=== PATIENT | female | born 2005 | race Caucasian/White ===

== ENCOUNTER 2023-05-29 12:43 | Emergency (ER) | payer SELFPAY ==
--- NOTE | ~2023-05-29 | XR_ITS ---
XR chest 1V portable DATE: 05/29/2023 14:03 INDICATION: Chest pain, cough TECHNIQUE: Portable AP chest on May 29, 2023 at 1409 hours COMPARISON: None FINDINGS: Normal heart size. No hilar or mediastinal enlargement. No pulmonary infiltrate or consolid ation, pleural effusion or pulmonary vascular congestion or pneumothorax. Included skeletal structure s are unremarkable. IMPRESSION: Negative Reviewed, dictated and finalized at location A. IMPRESSION: Negative
[2023-05-29 12:43] VITALS: BP 123/75; PULSE 98; RESP 18; TEMP 37.9; O2SAT 100
--- NOTE | 2023-05-29 13:09 | ED.GENADULT ---
HPI - General Adult General Chief complaint: Upper Respiratory Infection Stated complaint: fever, body aches, chills Time Seen by Provider: 05/29/23 13:08 History of Present Illness HPI narrative: 17-year-old female complaining of sore throat since yesterday her boyfriend had for 2 days. Complains general muscle aches decreased p.o. intake nausea yesterday denies any abdominal pain back pain. Has had some chest pain. Denies any cough problems voiding or stooling. Last menstrual period was 1 month ago she had a test done then was negative she has had a period in the last few days. Denies any swelling lumps or bumps rash or itching bleeding or bruising dizziness or lightheadedness or any other complaints. Related Data Home Medications Medication Instructions Recorded Confirmed No Home Medications 05/29/23 05/29/23 Allergies Allergy/AdvReac Type Severity Reaction Status Date / Time No Known Allergies Allergy Verified 05/29/23 12:58 Review of Systems Review of Systems: All systems reviewed & are unremarkable except as noted in HPI and below Exam Narrative: White female patient with no apparent distress.? Head normocephalic, atraumatic.? Eyes conjunctiva pink sclera nonicteric.? Extraocular movements are intact.? Ears externally normal.? Oropharynx is clear with moist mucous membranes without exudates.? Neck is supple nontender no lymphadenopathy.? Back is nontender.? Lungs are clear.? Heart is regular rate and rhythm without murmurs gallops or rubs.? Chest wall nontender.? Back is nontender. Abdomen is soft and nontender no hepatosplenomegaly or masses no CVA tenderness no abdominal bruits.? Extremities no cyanosis clubbing or edema.? Skin is warm and dry without rashes or lesions.? Neurological patient is alert and oriented x4.? Motor and sensory grossly intact.? Gait is normal. Course Vital Signs Vital signs: Vital Signs Temperature 37.9 C H 05/29/23 12:43 Pulse Rate 98 05/29/23 12:43 Respiratory Rate 18 05/29/23 12:43 Blood Pressure 123/75 05/29/23 12:43 Pulse Oximetry 100 05/29/23 12:43 Oxygen Delivery Room Air 05/29/23 12:43 Temperature 37.9 C H 05/29/23 12:43 Pulse Rate 98 05/29/23 12:43 Respiratory Rate 18 05/29/23 12:43 Blood Pressure 123/75 05/29/23 12:43 Pulse Oximetry 100 05/29/23 12:43 Oxygen Delivery Room Air 05/29/23 12:43 Medical Decision Making MDM Narrative Medical decision making narrative: Patient was placed in Room # One, with her boyfriend Coags COVID flu RSV strep D-dimer CBC CMP chest x-ray EKG troponin and test were all negative Independent Historian: boyfriend External Source Review: Differential Dx includes but not limited to: flu COVID RSV strep heart disease viral URI Medications were Reviewed: home meds reviewed she is on a pain reliever Independently Interpreted by me: normal sinus rhythm with sinus arrhythmia at a rate [address] T wave abnormalities normal axis impression normal EKG as independently interpreted by me. Meds, treatment, ED course: Social Situation Impacting Patients Care: Shared decision Making: evaluation was discussed with patient all questions were asked and answered patient agreed with the plan. DISCHARGE DIAGNOSIS: viral URI DISPOSITION: Discharged home CONDITION AT DISCHARGE: stable Vital Signs Vital Signs: Vital Signs Temperature 37.9 C H 05/29/23 12:43 Pulse Rate 98 05/29/23 12:43 Respiratory Rate 18 05/29/23 12:43 Blood Pressure 123/75 05/29/23 12:43 Pulse Oximetry 100 05/29/23 12:43 Oxygen Delivery Room Air 05/29/23 12:43 Temperature 37.9 C H 05/29/23 12:43 Pulse Rate 98 05/29/23 12:43 Respiratory Rate 18 05/29/23 12:43 Blood Pressure 123/75 05/29/23 12:43 Pulse Oximetry 100 05/29/23 12:43 Oxygen Delivery Room Air 05/29/23 12:43 Discharge Plan Discharge Clinical Impression: Upper respiratory infection P
[2023-05-29 13:30] LABS: Strep Group A RT-PCR NOT DETECTED (Negative)
[2023-05-29 13:40] LABS: Influenza A QL RT-PCR Negative (Negative); Influenza B QL RT-PCR Negative (Negative); RSV RNA, RT-PCR Negative (Negative); SARS-CoV-2 RNA PCR Negative (Negative)
[2023-05-29 13:40] LABS: Hematocrit 37.5 % (35.0-49.0); Hemoglobin 12.5 g/dL (12.0-15.0); Mean Corpuscular HGB Conc 33.3 g/dL (32-36); Mean Corpuscular Hemoglobin 31.9 pg (27.0-31.0); Mean Corpuscular Volume 95.7 fL (78.0-102.0); Platelet Count Result 231 K/mm3 (150-420); Red Blood Count 3.92 M/mm3 (4.20-5.40); Red Cell Distribution Width 12.5 % (11.6-14.4); White Blood Count 10.1 K/mm3 (4.8-10.8)
--- NOTE | 2023-05-29 13:47 | ECG_ITS ---
Measurements Intervals [place] Rate: 87 P: 17 NV: 145 QRS: 67 QRSD: 90 T: 9 QT: 352 AVG RR: 688 QTc: 396 QTCB: 424 QTCF: 398 Interpretive Statements SINUS RHYTHM WITH SINUS ARRHYTHMIA NORMAL ECG SEE SCANNED COPY FOR SIGNATURE MTDD
[2023-05-29 13:56] LABS: D Dimer 0.27 mg/L (0.19-0.50); Partial Thromboplastin Time 30.2 Sec (23.9-30.70); Prothrombin Time 10.8 Seconds (9.50-12.1); SPREG INTERNAL CONTROL Positive; Serum Qual hCG Negative
[2023-05-29 13:58] LABS: Alanine Aminotransferase 30 U/L (14-59); Albumin Level 3.7 g/dL (3.4-5.0); Alkaline Phosphatase 78 U/L (50-130); Anion Gap 9 mmol/L (4-12); Aspartate Amino Transferase 14 U/L (15-37); Bilirubin,Total 0.4 mg/dL (0.00-1.00); Blood Urea Nitrogen 9 mg/dL (7-18); Calcium 8.9 mg/dL (8.5-10.1); Carbon Dioxide 26 mmol/L (21-32); Chloride 104 mmol/L (98-108); Estimated CRCL calculation 99 ml/min; Estimated Glomerular Filt Rate > 60; Glucose 83 mg/dL (70-99); Osmolality Calculated 285 mOsm/kg (285-295); Potassium 4.2 mmol/L (3.5-5.1); Sodium 139 mmol/L (136-145); Total Protein 7.3 g/dL (6.4-8.2)
[2023-05-29 14:01] LABS: Troponin I < 4.0 ng/L (0.00-60.4)
[2023-05-29 14:32] VITALS: BP 114/70; PULSE 85; RESP 16; TEMP 38.4; O2SAT 100
== END 2023-05-29 14:56 | disposition home or self-care (01) ==
PROVIDERS: Emergency Provider Emergency Medicine
DX: J06.9 Acute upper respiratory infection, unspecified (principal); Z20.822 Contact with and (suspected) exposure to COVID-19
CPT/HCPCS: 36415; 71045; 80053; 84484; 84703; 85027; 85380; 85610; 85730; 87637; 87651; 93005; 99284

== ENCOUNTER 2023-08-28 19:14 | Emergency (ER) | payer MEDICAID, SELFPAY ==
[2023-08-28 19:24] VITALS: BP 121/60; PULSE 143; RESP 20; TEMP 39.1; O2SAT 100
--- NOTE | 2023-08-28 19:37 | ED.URI ---
HPI - URI/Sore Throat General Chief Complaint: Upper Respiratory Infection Stated Complaint: Chest Pain/Body Ache/Dizziness/Vomiting Time Seen by Provider: 08/28/23 19:24 Source: patient, RN notes reviewed and old records reviewed Mode of arrival: wheelchair Limitations: no limitations History of Present Illness HPI Narrative: 17 year old female accompanied by boyfriend presents to express, placed in wheel chair by boyfriend and during registration patient stated she felt she was going to pass out, she is very anxious,; staff went to registration area and patient proceeds to get out of wheelchair and nearly fell/ tripped. Patient was caught and assisted back to wheelchair. She reports that she will punch me in the face and tell her she'll have to go ahead because I can't let her fall,assisted back into wheelchair.. She apologizes to nursing staff later for her behavior.Patient reports that she has had fevers, chills, body aches,nasal congestion and drainage since yesterday and she did vomit one hour prior to arrival., patient states that she has had positive exposure to strep MD elicited complaint: fever, rhinorrhea, nasal congestion and other (chills, body aches) Onset (ago): day(s) Pain scale (0-10): 8 Able to tolerate fluids by mouth: Yes Treatments prior to arrival: acetaminophen Related Data Home Medications Medication Instructions Recorded Confirmed Iud 08/28/23 Allergies Allergy/AdvReac Type Severity Reaction Status Date / Time No Known Allergies Allergy Verified 08/28/23 19:15 Review of Systems Review of Systems: CONSTITUTIONAL: Reports malaise, chills, sweats, or fever. EYES: Denies visual changes, redness, or discharge. ENT: Reports rhinorrhea, congestion, sinus pain, no otalgia and no sore throat. CARDIOVASCULAR: Denies chest pain, palpitations, or edema. RESPIRATORY: Reports no cough.? Denies dyspnea. GASTROINTESTINAL: Denies abdominal pain, denies nausea, vomiting X1,no diarrhea SKIN: Denies rash or itching. MUSCULOSKELETAL:Reports myalgia. NEUROLOGIC: Denies headache. All systems reviewed & are unremarkable except as noted in HPI and below PMFSH Past Medical History Medical History (Updated 08/30/23 @ 14:57 by Zeinab Boggs NP) ADHD (attention deficit hyperactivity disorder) Anxiety and depression Bipolar 1 disorder IUD (intrauterine device) in place Social History Social History (Updated 08/30/23 @ 15:03 by Zeinab Boggs NP) Smoking status: Current every day smoker Alcohol intake: unknown Substance use: unknown Gender identity (if verbalized by the patient): Female Comments At time of signature, agree with nursing past medical, surgical, social and family history. There is no relevant family history pertinent to the presenting complaint Exam Narrative: GENERAL: Well-appearing, well-nourished, and in no acute distress HEAD: Normocephalic EYES: PERRLA, conjunctivae clear ENT: Nares clear, turbinates edematous and erythematous, clear discharge, sinus pain. Mucous membranes moist. TM pearly odom with dull light reflex bilaterally; no tragal tenderness. Oropharynx erythematous without lesions. Tonsils not enlarged and without exudate, no drooling, no hoarseness, no trismus, uvula midline. NECK: Supple. No lymphadenopathy CHEST: Clear to auscultation, breath sounds equal. No wheezing, rhonchi, rales, or stridor. No respiratory distress, speaks in full sentences.SAO2 100% on room air HEART: Regular rate and rhythm. No murmur heard. SKIN: Warm, dry, no rash. NEURO: Alert and oriented x3. PSYCH: Normal mood and affect; acute anxiety when first arrived but has calmed down and cooperative Course Course Emergency Course: Patient is aware of diagnosis, understands and agrees to treatment plan.? Anticipatory guidance given.? Patient agrees to follow-up as directed and is aware of reasons to seek care at the emergency department. Portions of
[2023-08-28 19:57] LABS: EDSTREPNEGPOS1 Presumptive Negative
--- NOTE | 2023-08-28 20:09 | PC.NURSE ---
denied uti sx.
[2023-08-28 20:11] LABS: EDINFLUASCREEN Negative; EDINFLUBSCREEN Negative
[2023-08-28 20:21] LABS: EDSTREPNEGPOS1 Presumptive Negative
--- NOTE | 2023-08-28 20:29 | PC.NURSE ---
temp recheck 100.9 per skin, hr 112, and pulse ox 97%ra. aware if sx persist or worsen to f/u in higher level of care. denied nausea or any other sx at this time.
== END 2023-08-28 20:39 | disposition home or self-care (01) ==
PROVIDERS: Emergency Provider Registered Nurse
DX: B34.9 Viral infection, unspecified (principal); F17.200 Nicotine dependence, unspecified, uncomplicated; Z20.822 Contact with and (suspected) exposure to COVID-19
CPT/HCPCS: 87081; 87426; 87804; 87880; 99213; G0463

== ENCOUNTER 2023-08-30 15:17 | Emergency (ER) | payer MEDICAID, SELFPAY ==
--- NOTE | 2023-08-30 15:23 | ED.GENADULT ---
HPI - General Adult General Chief complaint: Upper Respiratory Infection Stated complaint: Chills/Sore Throat/Vomiting/Cough Time Seen by Provider: 08/30/23 15:25 Source: patient, RN notes reviewed and old records reviewed Mode of arrival: ambulatory Limitations: no limitations History of Present Illness HPI narrative: 17-year-old female presents to the [facility] with complaints of chills, sore throat, vomiting and a cough. Was evaluated 2 days ago and tested negative for flu, COVID, strep. Symptoms now having gradually increasing over the last 3 days. Patient states that whenever she tries take sips of water she does vomit. Has not taking any medications to help her symptoms Treatments prior to arrival: none Related Data Home Medications Medication Instructions Recorded Confirmed Iud 08/28/23 Allergies Allergy/AdvReac Type Severity Reaction Status Date / Time No Known Allergies Allergy Verified 08/28/23 19:15 Review of Systems Review of Systems: All systems reviewed & are unremarkable except as noted in HPI and below Constitutional: Constitutional: Reports as per HPI, Reports body ache(s), Reports fatigue and Reports fever(s) Eyes: Eyes: Reports no additional eye complaints ENT: Reports as per HPI and Reports sore throat Cardiovascular: Cardiovascular: Reports no additional cardiovascular complaints, Denies chest pain and Denies dyspnea Respiratory: Respiratory: Reports no additional respiratory complaints, Denies chest congestion, Denies cough and Denies dyspnea Gastrointestinal: Gastrointestinal: Reports as per HPI, Denies abdominal pain, Reports nausea and Reports vomiting Musculoskeletal: Musculoskeletal: Reports no additional musculoskeletal complaints Integumentary/Breasts: Skin/Breast: Reports system reviewed and no additional complaints, except as docu Neurologic: Reports system reviewed and no additional complaints, except as documented Psychiatric: Psychiatric: Reports no additional psychiatric complaints Allergic/Immunologic: Allergic/Immunologic: Reports no additional allergic/immunologic complaints [facility] Past Medical History Medical History ADHD (attention deficit hyperactivity disorder) Anxiety and depression Bipolar 1 disorder IUD (intrauterine device) in place Social History Social History Smoking status: Current every day smoker Alcohol intake: unknown Substance use: unknown Gender identity (if verbalized by the patient): Female Comments At the time of my signature, I reviewed and agree with the nursing past medical, surgical, social, and family history. There is no relevant family history pertinent to the patient complaint. Exam Const: General: cooperative, no acute distress, well developed, alert, tired appearing, uncomfortable and well nourished Nutritional Appearance: well nourished Orientation/consciousness: patient oriented x3 Limitations: no limitations HENMT: Head: normal to inspection Ears: hearing grossly normal bilaterally, external ears normal, TM's normal bilaterally, EAC's normal, mastoids normal and no periauricular adenopathy Face/Nose/Sinus: Normal external nose present, Normal nares present, Normal nasal mucous membranes and turbinates present, normal facial exam and face symmetric Face and sinus: normal facial exam and face symmetric Throat: posterior oropharynx normal, tonsils normal, uvula midline and no uvular edema Eyes: General: appearance normal, both eyes and all related structures Alignment and Position: alignment normal Periorbital: periorbital findings normal Pupils: Equal, round and reactive pupils present EOM: EOMs intact bilaterally Neck: Neck: normal visual inspection, full ROM, no lymphadenopathy and no meningeal signs Chest: Chest palpation & inspection: normal inspection of the chest Resp: Effort & Inspection: normal re
[2023-08-30 15:27] VITALS: BP 93/79; PULSE 136; RESP 16; TEMP 38.2; O2SAT 96
[2023-08-30 16:02] LABS: EDSTREPNEGPOS1 Presumptive Negative
== END 2023-08-30 15:58 | disposition short-term general hospital (02) ==
PROVIDERS: Emergency Provider Nurse Practitioner
DX: B34.9 Viral infection, unspecified (principal); F17.200 Nicotine dependence, unspecified, uncomplicated
CPT/HCPCS: 87081; 87880; 99213; G0463

== ENCOUNTER 2023-12-28 16:30 | Emergency (ER) | payer OTHER, SELFPAY ==
[2023-12-28 16:39] VITALS: BP 118/75; PULSE 71; RESP 20; TEMP 36.6; O2SAT 100
[2023-12-28 16:43] VITALS: BP 118/75; PULSE 71; RESP 20; TEMP 36.6; O2SAT 100
--- NOTE | 2023-12-28 16:56 | ED_ITS ---
HPI - Chest Pain General Chief Complaint: Chest Pain Stated Complaint: chest pain/shaking/trouble breathing Source: patient Mode of arrival: ambulatory Limitations: no limitations History of Present Illness HPI narrative: 18 y/o female with hx anxiety and depression presented for c/o chest pain x2 hours. States she had to leave work early due to the pain and it has not resolved. Pain is constant, but worse with deep breaths. At onset she felt heart racing and dizziness which has resolved. Denies injury or overuse. denies nausea, vomiting, cough, shortness of breath or fever. Related Data Home Medications Medication Instructions Recorded Confirmed No Home Medications 12/28/23 12/28/23 Allergies Allergy/AdvReac Type Severity Reaction Status Date / Time No Known Allergies Allergy Verified 12/28/23 16:40 Review of Systems Review of Systems: CONSTITUTIONAL: Denies body aches, fever, chills, or sweats. ENT: Denies rhinorrhea, congestion, sore throat, or otalgia. CARDIOVASCULAR: reports chest pain, denies palpitations, or edema. RESPIRATORY: Denies cough or dyspnea. GASTROINTESTINAL: Denies abdominal pain, nausea, vomiting, or diarrhea. SKIN: Denies rash, or wounds. NEUROLOGIC: Denies headache, numbness, tingling, or weakness. PSYCH: Reports depression or anxiety. All systems reviewed & are unremarkable except as noted in HPI and below PMFSH Past Medical History Medical History ADHD (attention deficit hyperactivity disorder) Anxiety and depression Bipolar 1 disorder IUD (intrauterine device) in place Social History Social History Smoking status: Current every day smoker Alcohol intake: unknown Substance use: unknown Gender identity (if verbalized by the patient): Female Comments At time of signature, I have reviewed and agree with nursing past medical, surgical, social and family history unless otherwise noted. Please see nursing chart for further information. There is no relevant family history pertinent to the presenting complaint Exam Narrative: GENERAL: Well-appearing EYES: EOMI. No redness or drainage. Conjunctivae normal. ENT: Mucous membranes pink and moist. No rhinorrhea. TMs normal bilaterally. Throat normal. Uvula midline. NECK: Normal AROM. Supple. No lymphadenopathy. CHEST: No respiratory distress. Clear to auscultation. tender with palpation nonsteroidal borders HEART: Regular rate and rhythm. No murmur appreciated. Normal peripheral pulses. ABDOMEN: Soft, nontender, nondistended, normal active bowel sounds. SKIN: Warm, dry, no rash. Capillary refill normal. Normal skin turgor. NEURO: No focal deficits. Alert and oriented x3. Gait steady. PSYCH: Flat affect. Course Course Emergency Course: Patient is aware of diagnosis, understands and agrees to treatment plan. Anticipatory guidance given. Patient agrees to follow-up as directed and is aware of reasons to seek care at the emergency department. Portions of this record may have been created with voice recognition software Level of Care: Express Care Visit Vital Signs Vital signs: Vital Signs Temperature 97.9 F 12/28/23 16:39 Pulse Rate 71 12/28/23 16:39 Respiratory Rate 20 12/28/23 16:39 Blood Pressure 118/75 12/28/23 16:39 Pulse Oximetry 100 12/28/23 16:39 Oxygen Delivery Room Air 12/28/23 16:39 Temperature 97.9 F 12/28/23 16:43 Pulse Rate 71 12/28/23 16:43 Respiratory Rate 20 12/28/23 16:43 Blood Pressure 118/75 12/28/23 16:43 Pulse Oximetry 100 12/28/23 16:43 Oxygen Delivery Room Air 12/28/23 16:43 Transfer Transfered to: [facility] Transportation: Other ( private vehicle) Transfer rationale: Pt is agreeable to transfer. Requests transfer to [facility] via private vehicle; declines ambulance. Risks of transportation reviewed with pt including injury, worsening of condition and . v/u. Report called to hospital, spoke with Tom HUNTELY, Dr Ferreira, accepting physician. Pt is in stable condition at time of transfer. Advised to remain NPO and go directly to the hospital. MDM - Chest Pain MDM Narrative Medical decision making narrative: discussed physical exam findings an EKG with patient. Has a history of anxiety, presented with complaint of painful respirations. Advised ER transfer. States she will have her sister take her to the ER. However she then stated no one is available to take her to the ER, she declines EMS transfer and will drive herself. Differential Diagnosis Differential diagnosis: Likely stable angina, atypical chest pain, costochondritis, chest pain and other (STEMI, AAA, PE, pneumothorax, cardiac tamponade, esophageal rupture, pneumonia, GERD, musculoskeletal pain, endocarditis, pericarditis, URI, bronchitis, anxiety, cocaine related ischemia. ) ECG Data EKG #1: Attestation: I personally reviewed and interpreted this ECG as follows: (NSR 70 DE 143, QRS 92, QT / QTC 398/419) ECG completion date: 12/28/23 ECG completion time: 16:52 Prior ECG tracings: available for review EKG Interpretation: normal rate and sinus rhythm Discharge Plan Discharge Clinical Impression: Chest pain Patient Disposition: Acute Care Hospital Condition: Stable Prescriptions: No Action No Home Medications Follow-up/Referrals: PHYSICIAN,SUPERVISOR FLOOR ASSEMBLY [Primary Care Provider] - Time of Disposition: 17:20
--- NOTE | 2023-12-28 17:07 | ECG_ITS ---
Test Date: 2023-12-28 16:52:31 Measurements Intervals [place] Rate: 70 P: 25 [place]: 143 QRS: 67 QRSD: 92 T: 50 QT: 398 QTc: 432 Interpretive Statements SINUS RHYTHM WITH MARKED SINUS ARRHYTHMIA MINIMAL Q WAVES- ANTEROLAT/INF LEADS BORDERLINE ECG No previous ECG available for comparison Electronically Signed On 12-29-2023 07:25:27 INTERIOR DECORATOR [employer]INTING by Reggie Kumari D.O.
== END 2023-12-28 17:14 | disposition short-term general hospital (02) ==
PROVIDERS: Emergency Provider Nurse Practitioner Family
DX: R07.9 Chest pain, unspecified (principal); F17.200 Nicotine dependence, unspecified, uncomplicated
CPT/HCPCS: 93005; 99213; G0463

== ENCOUNTER 2024-01-31 10:18 | Emergency (ER) | payer OTHER, SELFPAY ==
[2024-01-31 10:35] VITALS: BP 108/61; PULSE 87; RESP 16; TEMP 36.8; O2SAT 99
--- NOTE | 2024-01-31 11:10 | ED.URI ---
HPI - URI/Sore Throat General Chief Complaint: Upper Respiratory Infection Stated Complaint: headaches/bodyaches/chills/cough Time Seen by Provider: 01/31/24 11:10 Source: patient Mode of arrival: ambulatory Limitations: no limitations History of Present Illness HPI Narrative: 18-year-old female presents with complaint of cough, nasal congestion, fatigue, fever, body aches for 2-3 days. Afebrile. Reports that her boyfriend was just diagnosed with viral upper respiratory infection . Patient taking DayQuil to treat her symptoms. No chest pain or shortness of breath. Reports mild nausea but no vomiting. All systems reviewed and negative except as noted above. Related Data Home Medications Medication Instructions Recorded Confirmed No Home Medications 12/28/23 12/28/23 Allergies Allergy/AdvReac Type Severity Reaction Status Date / Time No Known Allergies Allergy Verified 12/28/23 16:40 Review of Systems Review of Systems: CONSTITUTIONAL: reports fever, chills, or sweats. EYES: Denies visual changes, redness, or discharge. ENT: Reports rhinorrhea, congestion. Denies sore throat, or otalgia. CARDIOVASCULAR: Denies chest pain, palpitations, or edema. RESPIRATORY: reports cough. Denies dyspnea. GASTROINTESTINAL: Denies abdominal pain, nausea, vomiting, or diarrhea. GENITOURINARY: Denies dysuria or hematuria. SKIN: Denies rash or itching. MUSCULOSKELETAL: Denies back pain, joint pain. Reports myalgia. NEUROLOGIC: Denies headache, numbness, or weakness. PSYCHIATRIC: Denies anxiety or depression. All other systems reviewed are negative, except as documented in HPI. PMFSH Past Medical History Medical History ADHD (attention deficit hyperactivity disorder) Anxiety and depression Bipolar 1 disorder IUD (intrauterine device) in place Social History Social History Smoking status: Current every day smoker Alcohol intake: unknown Substance use: unknown Gender identity (if verbalized by the patient): Female Comments At time of signature, agree with nursing past medical, surgical, social and family history. There is no relevant family history pertinent to the presenting complaint. Exam Narrative: GENERAL: This is a well-nourished, well-developed patient, ill-appearing but in no acute distress HEAD: normocephalic, atraumatic. EYES: PERRL. Sclera clear/white. Vision is grossly intact. EARS: External ears normal, auditory canals clear and without drainage, TMs normal without perforation. Hearing grossly intact. NOSE: External nose normal with mild congestion, clear nasal drainage THROAT: Mucous membranes moist, posterior pharynx clear. NECK: Neck supple, non-tender without lymphadenopathy, masses or thyromegaly. CARDIOVASCULAR: Regular rate and rhythm without murmurs, gallops, or rubs. RESPIRATORY: Clear to auscultation. Breath sounds equal bilaterally. No wheezes, rales, or rhonchi. SKIN: warm, Dry, intact with no suspicious lesions or rash, good texture and turgor. NEURO: awake, alert, and oriented to person, place and time. There were no obvious focal neurologic abnormalities. EXTREMITIES: No joint tenderness, effusion, or edema noted. Course Course Level of Care: Express Care Visit Vital Signs Vital signs: Vital Signs Temperature 36.8 C 01/31/24 10:35 Pulse Rate 87 01/31/24 10:35 Respiratory Rate 16 01/31/24 10:35 Blood Pressure 108/61 01/31/24 10:35 Pulse Oximetry 99 01/31/24 10:35 Oxygen Delivery Room Air 01/31/24 10:35 Temperature 36.8 C 01/31/24 10:35 Pulse Rate 87 01/31/24 10:35 Respiratory Rate 16 01/31/24 10:35 Blood Pressure 108/61 01/31/24 10:35 Pulse Oximetry 99 01/31/24 10:35 Oxygen Delivery Room Air 01/31/24 10:35 reviewed MDM - URI/Sore Throat MDM Narrative Medical decision making narrative: negative influenza test. Patient is well-appearing, nontoxic. Lungs clear to auscultation. Recommend [id number] medications to treat viral symptoms. Patient is aware of diagnosis, understands and agrees to treatment plan. Anticipatory guidance given. Patient agrees to follow-up as directed and is aware of reasons to seek care at the emergency department. Portions of this record may have been created with voice recognition software Differential Diagnosis Differential diagnosis: Likely upper respiratory infection, sinusitis, viral infection, bronchitis and influenza Discharge Plan Discharge Clinical Impression: Viral upper respiratory tract infection with cough Patient Disposition: Home, Self-Care Condition: Stable Instructions: Upper Respiratory Infection (ED) Additional Instructions: your influenza test was negative today. Your symptoms are viral and may last 10-14 days. Take an [id number] medication to treat her symptoms such as DayQuil NyQuil cold and flu. Drink at least 64 oz of water a day. Place cool mist humidifier in bedroom where you sleep. Follow-up with your primary care physician if symptoms are not improving. Prescriptions: No Action No Home Medications Follow-up/Referrals: PHYSICIAN,SALES SYSTEMS ENGINEER [Primary Care Provider] - Stand Alone Forms: Work/School Release IP Time of Disposition: 11:29
[2024-01-31 11:33] LABS: EDINFLUASCREEN Negative (Negative); EDINFLUBSCREEN Negative (Negative)
[2024-01-31 11:33] LABS: EDINFLUASCREEN Negative (Negative); EDINFLUBSCREEN Negative (Negative)
== END 2024-01-31 11:35 | disposition home or self-care (01) ==
PROVIDERS: Emergency Provider Nurse Practitioner Family
DX: J06.9 Acute upper respiratory infection, unspecified (principal); R05.9 Cough, unspecified; F17.200 Nicotine dependence, unspecified, uncomplicated
CPT/HCPCS: 87804; 99212; G0463

== ENCOUNTER 2024-05-01 13:55 | Emergency (ER) | payer OTHER, SELFPAY ==
[2024-05-01 14:01] VITALS: BP 111/78; PULSE 100; RESP 20; TEMP 37.3; O2SAT 100
--- NOTE | 2024-05-01 14:14 | ED_ITS ---
HPI - URI/Sore Throat General Chief Complaint: Upper Respiratory Infection Stated Complaint: cough/chest burn/aches Time Seen by Provider: 05/01/24 14:14 Source: patient, RN notes reviewed and old records reviewed Mode of arrival: ambulatory Limitations: no limitations History of Present Illness HPI Narrative: 18 year old female presents to [facility] care with complaints of cough, chest burning,expectoration of mucous,headache,sore throat, chills body aches and some right ear pain for the past 4 days. Patient reports that she has been taking NyQuil and also Ibuprofen for her symptoms. MD elicited complaint: cough (chest pittman,), sore throat and other (headache, body aches and right ear pain) Pertinent past history: other (tonsillectomy) Onset (ago): day(s) (4) Pain scale (0-10): 6 Able to tolerate fluids by mouth: Yes Treatments prior to arrival: ibuprofen and other (NyQuil) Related Data Home Medications ?Medication ?Instructions ?Recorded ?Confirmed ?Last Taken ?Type levonorgestrel (Mirena) 1 device intrauterine ONCE 05/01/24 Unknown History Allergies Allergy/AdvReac Type Severity Reaction Status Date / Time No Known Allergies Allergy Verified 05/01/24 14:11 Review of Systems Review of Systems: CONSTITUTIONAL: Reports malaise, chills, sweats, or fever. EYES: Denies visual changes, redness, or discharge. ENT: Reports rhinorrhea, congestion, sinus pain, right ear otalgia and positive for sore throat. CARDIOVASCULAR: Denies chest pain, palpitations, or edema. RESPIRATORY: Reports cough.? Denies dyspnea.report chest pittman with cough GASTROINTESTINAL: Denies abdominal pain, nausea, vomiting, diarrhea SKIN: Denies rash or itching. MUSCULOSKELETAL:Reports myalgia. NEUROLOGIC: Reports headache. All systems reviewed & are unremarkable except as noted in HPI and below PMFSH Past Medical History Medical History IUD (intrauterine device) in place ADHD (attention deficit hyperactivity disorder) Bipolar 1 disorder Anxiety and depression Surgical History Surgical History History of tonsillectomy Social History Social History (Updated 05/03/24 @ 13:03 by Zeinab Boggs NP) Smoking status: Current every day smoker Tobacco type: e-cigarettes/vaping Alcohol intake: unknown Substance use: unknown Gender identity (if verbalized by the patient): Female Comments At time of signature, agree with nursing past medical, surgical, social and family history. There is no relevant family history pertinent to the presenting complaint Exam Narrative: GENERAL: Well-appearing, well-nourished, and in no acute distress. HEAD: Normocephalic EYES: PERRLA, conjunctivae clear ENT: Nares clear, turbinates edematous and erythematous, clear discharge. Mucous membranes moist. TM pearly odom with dull light reflex bilaterally; no tragal tenderness. Oropharynx erythematous without lesions. Tonsils not present and throat without exudate, no drooling, no hoarseness, no trismus, uvula midline.post nasal drainage. NECK: Supple. No lymphadenopathy CHEST: Clear to auscultation, breath sounds equal. No wheezing, rhonchi, rales, or stridor. No respiratory distress, speaks in full sentences.cough noted with complaints of chest burning SAO2 100% on room air HEART: Regular rate and rhythm. No murmur heard. SKIN: Warm, dry, no rash. NEURO: Alert and oriented x3. PSYCH: Normal mood and affect Course Course Emergency Course: Patient is aware of diagnosis, understands and agrees to treatment plan.? Anticipatory guidance given.? Patient agrees to follow-up as directed and is aware of reasons to seek care at the emergency department. Portions of this record may have been created with voice recognition software Level of Care: Express Care Visit Vital Signs Vital signs: Vital Signs Temperature 37.3 C 05/01/24 14:01 Pulse Rate 100 05/01/24 14:01 Respiratory Rate 20 05/01/24 14:01 Blood Pressure 111/78 05/01/24 14:01 Pulse Oximetry 100 05/01/24 14:01 Oxygen Delivery Room Air 05/01/24 14:01 Temperature 37.3 C 05/01/24 14:01 Pulse Rate 100 05/01/24 14:01 Respiratory Rate 20 05/01/24 14:01 Blood Pressure 111/78 05/01/24 14:01 Pulse Oximetry 100 05/01/24 14:01 Oxygen Delivery Room Air 05/01/24 14:01 Reviewed MDM - URI/Sore Throat MDM Narrative Medical decision making narrative: Differential diagnosis considered: [place] virus, strep pharyngitis, allergic rhinitis, upper respiratory tract infection, sinusitis, rhinosinusitis, nasopharyngitis. viral pharyngitis, otitis media, otitis externa, pneumonia, bronchitis, viral cough syndrome, viral syndrome, and influenza.? Exam findings show no acute concerns or changes; patient is non-toxic appearing and is in no distress.? Patient is appropriate for outpatient treatment and follow-up. Differential Diagnosis Differential diagnosis: Likely upper respiratory infection, otitis media, viral infection, influenza and other (COVID, acute cough) Medical Records Attestation: I reviewed the patient's medical records. Lab Data Attestation: I reviewed the patient's lab results. Lab results narrative: Influenza A negative, Influenza B negative, COVID antigen negative Labs: Lab Results 05/01/24 Range/Units 14:10 POC Influenza A Ag Negative (Negative) POC Influenza B Ag Negative (Negative) POC SARS CoV-2 Ag Negative (Negative) Critical Care Time Critical Care Time Critical Care Time: No Discharge Plan Discharge Clinical Impression: URI (upper respiratory infection) Qualifiers: URI type: unspecified URI Qualified Code(s): J06.9 - Acute upper respiratory infection, unspecified Cough Qualifiers: Cough type: acute Qualified Code(s): R05.1 - Acute cough Patient Disposition: Home, Self-Care Condition: Stable Instructions: Upper Respiratory Infection (ED), Acute Cough (ED) Additional Instructions: Increase fluids especially juices and water [id number] cough and cold medicine of your choice for your symptoms Cough tablets as directed for cough--do not bite, chew or suck on--swallow whole Zyrtec Claritin or Sadie daily include plain Sudafed daily Steroids as directed--take with food heat to the face 20-30 minutes 4-6 times a day for pain Salt water gargles, throat lozenges or throat sprays as desired Tylenol or ibuprofen for any fever pain If your symptoms persist, change or worsen significantly before you can contact your personal physician then please, without delay, go to the emergency department for further evaluation. Follow-up with PCP in 7-10 days or sooner if needed Patient Language: Azerbaijani Prescriptions: New methylprednisolone [Medrol (Geovani)] 4 mg tablets,dose pack See Rx Instructions .ROUTE .COMPLEX Qty: 21 0RF Rx Instructions: orally per package directions benzonatate 200 mg capsule 200 mg PO TID PRN (Reason: cough) Qty: 20 0RF No Action Mirena 21 mcg/24hr (up to 8 yrs) 52 mg intrauterine device 1 device intrauterine ONCE Rx Instructions: as a single dose Follow-up/Referrals: PHYSICIAN,JUKEBOX ROUTE DRIVER [Primary Care Provider] - Stand Alone Forms: Work/School Release IP Time of Disposition: 14:36 Quality Moustapha Coma Scale Eyes: Open Verbal: Oriented and Alert Motor: Follows Commands [place] Coma Total Score: 15
[2024-05-01 14:24] LABS: EDCOVIDSCREEN Negative (Negative); EDINFLUASCREEN Negative (Negative); EDINFLUBSCREEN Negative (Negative)
--- OUTSIDE RECORDS SUMMARY | 2024-05-01 16:07 | XMS_ITS | Clinical Summary ---
Author Organization [facility] Address [address] [place] [address] Care Team Providers Care Orthopedic Specialist Name Role Phone No, Physician Primary Care Provider [phone] Allergies No known active allergies Medications acetaminophen 500 mg capsule Take 2 capsules (1,000 mg total) by mouth every 6 (six) hours as needed for pain 30 tablet 09/02/2023 Active naproxen (NAPROSYN) 500 mg tablet Take 1 tablet (500 mg total) by mouth 2 (two) times a day as needed for pain Take with food. 30 tablet 12/28/2023 Active Active Problems Problem Noted Date Diagnosed Date Sepsis 08/31/2023 Hypotension 08/31/2023 Pyelonephritis 08/30/2023 Immunizations Immunization Administration Dates Next Due Influenza, Trivalent, Preservative Free, Intramu scular 12/28/2023 Surgical History Surgery Date Site/Laterality Comments ADENOIDECTOMY W/ MYRINGOTOMY AND TUBES TONSILECTOMY, ADENOIDECTOMY, BILATERAL MYRINGOTOMY AND TUBES Social History Tobacco Use Types Packs/Day Years Used Date Smoking Tobacco: Never Smokeless Tobacco: Never [employer] Utilities Answer Date Recorded In the past 12 months has [employer], gas, oil, or water [employer] threatened to shut off services in your home? No 08/31/2023 Social Connection and Isolat ion Panel [NHANES] Answer Date Recorded In a typical week, how many times do you talk on the phone with family, friends, or neighbors? More than three times a week 08/31/2023 How often do you get togethe r with friends or relatives? More than three times a week 08/31/2023 How often do you attend [facility] or holiness services? 1 to 4 times per year 08/31/2023 Do you belong to any clubs o r organizations such as samaritan groups, unions, fraternal or athletic groups, or school groups? No 08/31/2023 How often do you attend meet ings of the clubs or organizations you belong to? Never 08/31/2023 Are you , , di vorced, , never , or living with a partner? Never 08/31/2023 Overall Financial Resource Strain (CARDIA) Answe r Date Recorded How hard is it for you to pa y for the very basics like food, housing, medical care, and heating? Not very hard 08/31/2023 Hunger Vital Sign Answer Date Recorded Within the past 12 months, y ou worried that your food would run out before you got the money to buy more. Sometimes true Within the past 12 months, t he food you bought just didn't last and you didn't have money to get more. Sometimes true 10/2023 PRAPARE - Transportation Answer Date Re corded In the past 12 months, has l ack of transportation kept you from medical appointments or from getting medications? No 10/2023 In the past 12 months, has l ack of transportation kept you from meetings, work, or from getting things needed for daily living? No 08/31/2023 Housing Stability Vital Sign Answer Zeeshan e Recorded In the last 12 months, was t here a time when you were not able to pay the mortgage or rent on time? No 08/31/2023 In the past 12 months, how m any times have you moved where you were living? 0 08/31/2023 At any time in the past 12 m [facility], were you homeless or living in a detention (including now)? No 08/31/2023 Personal Safety Answer Date Recorded Have you ever been in or are you currently in a harmful physical or emotional relationship or is someone making you feel afraid or unsafe? Denies 12/28/2023 Education Answer Date Recorded What is the highest level of school you have completed or the highest degree you have received? Some college, no degree 08/31/2023 Comments No Sex and Gender Information Value Date Recorded Sex Assigned at Not on file Legal Sex Female 5:23 PM SUPERVISOR FLESHING Gender Identity Not on file Sexual Orientation Not on file Obstetrics History Last Filed Vital Signs Vital Sign Reading Time Taken Comments Blood Pressure 103/66 12/28/2023 11:15 PM SUPERVISOR FLESHING Pulse 71 12/28/2023 11:25 PM SUPERVISOR FLESHING Temperature 36.9 C (98.4 F) 12/28/2023 9:03 PM SUPERVISOR FLESHING Respiratory Rate 20 12/28/2023 11:25 PM SUPERVISOR FLESHING Oxygen Saturation 100% 12/28/2023 11:25 PM SUPERVISOR FLESHING Inhaled Oxygen Concentration - - Weight 69.4 kg (153 lb) 12/28/2023 6:38 PM SUPERVISOR FLESHING Height 154.9 cm (5' 1 ) 12/28/2023 6:38 PM SUPERVISOR FLESHING Body Mass Index 28.91 12/28/2023 6:38 PM SUPERVISOR FLESHING Plan of Treatment Health Maintenance Due Date Last Done Comments Depression Screening 2003 Hepatitis C Screening 2003 Regular Well Visit/Exam 18-64 11/07/2021 Covid-19 Vaccine (2023- 5 season) 2023 11/11/2020, 10/16/2020 DTaP/Tdap/Td Vaccine (7 - Td or Tdap) 06/03/2025 06/04/2015, 09/16/2009, 04/17/2005, Additional history exists Hepatitis B Screening Completed 08/01/2004 , 02/18/2004, 2003 Pneumococcal vaccine <65 Completed 006, 11/21/2004, 08/01/2004, Additional history exists Varicella Vaccines Completed 09/16/2009, 11/21/2004 HPV Vaccines Completed 10/18/2018, 07/23, 06/04/2015 Meningococcal Vaccine Completed 07/15/2021, 016 Meningococcal B Vaccine Completed 08/18/2021, 07/15 Influenza Vaccine Completed 12/28/2023, , 02/26/2010, Additional history exists [place] [address] [place] [address] Advance Directives For more information, please contact: [phone] * Full Code (Latest Code Status on File) Date Activated Date Inactivated Comments 08/30/2023 7:46 PM 09/02/2023 4:31 PM Care Teams Orthopedic Specialist Relationship Specialty Start Date End Date No, Physician PCP - General 08/23/23
--- OUTSIDE RECORDS SUMMARY | 2024-05-01 16:07 | XMS_ITS | Referral Summary ---
Author Organization [facility] Address [address] [place] [address] Care Team Providers Care Microwave Oven Assembler Name Role Phone No, Physician Primary Care Provider [phone] Allergies No known active allergies Medications acetaminophen [...] Influenza, Trivalent, Preservative Free, Intramu scular 12/28/2023 Social History Tobacco Use Types Packs/Day Years Used Date Smoking Tobacco: Never Smokeless Tobacco: Never [employer] Utilities Answer Date Recorded In the past 12 months has [employer], [employer], oil, or water [employer] threatened to shut off services in your [...] week 08/31/2023 How often do you attend chur or druze services? 1 to 4 times per year 08/31/2023 Do you belong to any clubs o r organizations such as yazdanism groups, unions, fraternal or athletic groups, or [...] any time in the past 12 m [facility], were you homeless or living in a prison (including now)? No 08/31/2023 Personal Safety Answer [...] on file Legal Sex Female 5:23 PM STEAK TENDERIZER MACHINE Gender Identity Not on file Sexual Orientation Not on file Last Filed Vital Signs Vital Sign Reading Time Taken Comments Blood Pressure 103/66 12/28/2023 11:15 PM STEAK TENDERIZER MACHINE Pulse 71 12/28/2023 11:25 PM STEAK TENDERIZER MACHINE Temperature 36.9 C (98.4 F) 12/28/2023 9:03 PM STEAK TENDERIZER MACHINE Respiratory Rate 20 12/28/2023 11:25 PM STEAK TENDERIZER MACHINE Oxygen Saturation 100% 12/28/2023 11:25 PM STEAK TENDERIZER MACHINE Inhaled Oxygen Concentration - - Weight 69.4 kg (153 lb) 12/28/2023 6:38 PM STEAK TENDERIZER MACHINE Height 154.9 cm (5' 1 ) 12/28/2023 6:38 PM STEAK TENDERIZER MACHINE Body Mass Index 28.91 12/28/2023 6:38 PM STEAK TENDERIZER MACHINE Plan of [place] [address] Advance Directives For more information, please contact: [phone] * Full Code (Latest Code Status on File) Date Activated Date Inactivated Comments 08/30/2023 7:46 PM 09/02/2023 4:31 PM Care Teams Microwave Oven Assembler Relationship Specialty Start Date End Date No, Physician PCP - General 08/23/23
== END 2024-05-01 14:40 | disposition home or self-care (01) ==
PROVIDERS: Emergency Provider Registered Nurse
DX: J06.9 Acute upper respiratory infection, unspecified (principal); R05.1 Acute cough; Z20.822 Contact with and (suspected) exposure to COVID-19; F17.290 Nicotine dependence, other tobacco product, uncomplicated
CPT/HCPCS: 87426; 87804; 99213; G0463

== ENCOUNTER 2024-05-11 08:36 | Emergency (ER) | payer OTHER, SELFPAY ==
--- NOTE | ~2024-05-11 | XR_ITS ---
XR foot RT min 3V Ordering provider: Carlos Washington APRN History: . dorsal Rt foot and arch pain- rolled foot yest . Comparison: None. FINDINGS: BONES: No acute fracture or dislocation. JOINT SPACES: Normal. No tarsal coalition. SOFT TISSUES: Normal. IMPRESSION: No acute osseous abnormality of the right foot. Reviewed, dictated and finalized at location A.
--- NOTE | 2024-05-11 08:38 | ED_ITS ---
HPI - Extremity Injury (Lower) General Chief Complaint: Extremity Injury, Lower Stated Complaint: Injured Right Foot Time Seen by Provider: 05/11/24 08:38 Source: patient Mode of arrival: ambulatory Limitations: no limitations History of Present Illness HPI Narrative: Buddy is a 18-year-old female patient presenting to the clinic today with complaints of right foot pain. She reports she rolled her foot yesterday when she stepped off a porch into a hole. Has pain to the lateral dorsal foot and over the arch. No bruising or swelling noted. Related Data Home Medications ?Medication ?Instructions ?Recorded ?Confirmed ?Last Taken ?Type levonorgestrel (Mirena) 1 device intrauterine ONCE 05/01/24 Unknown History Allergies Allergy/AdvReac Type Severity Reaction Status Date / Time No Known Allergies Allergy Verified 05/11/24 08:50 Review of Systems Review of Systems: Pertinent positives per HPI. Patient denies any fever, chills, rash, headache, visual changes, dizziness, cough, runny nose, sore throat, shortness of breath, chest pain, palpitations, nausea, vomiting, diarrhea, constipation, abdominal pain, or any urinary issues. [facility] Past Medical History Medical History IUD (intrauterine device) in place ADHD (attention deficit hyperactivity disorder) Bipolar 1 disorder Anxiety and depression Surgical History Surgical History History of tonsillectomy Social History Social History Smoking status: Current every day smoker Tobacco type: e-cigarettes/vaping Alcohol intake: unknown Substance use: unknown Gender identity (if verbalized by the patient): Female Comments At the time of my signature, I reviewed and agree with the nursing past medical, surgical, social, and family history. There is no relevant family history pertinent to the patient complaint. Exam Narrative: General: Well-developed, well nourished, in no apparent distress Head: Normocephalic, atraumatic. Cardio: Regular rate and rhythm, s1 and s2 normal, no murmur appreciated. Resp: Clear to auscultation bilaterally, no rhonchi, rales, wheezing or rubs. Musculoskeletal: No deformity, no bruising or swelling, tender to palpation over the dorsal lateral right foot as well as over the arch, grossly normal range of motion, muscle strength strong and equal, peripheral pulse strong, no edema, no cyanosis, normal gait and station Course Course Emergency Course: Portions of this record may have been created with voice recognition software. Level of Care: Express Care Visit Vital Signs Vital signs: Vital Signs Temperature 36.4 C 05/11/24 08:49 Pulse Rate 93 05/11/24 08:49 Respiratory Rate 16 05/11/24 08:49 Blood Pressure 114/78 05/11/24 08:49 Pulse Oximetry 98 05/11/24 08:49 Temperature 36.4 C 05/11/24 08:49 Pulse Rate 93 05/11/24 08:49 Respiratory Rate 16 05/11/24 08:49 Blood Pressure 114/78 05/11/24 08:49 Pulse Oximetry 98 05/11/24 08:49 Vital signs reviewed MDM - Extremity Injury (Lower) MDM Narrative Medical decision making narrative: At the time of visit patient is resting comfortably on the exam table. Patient appears to be nontoxic. Diagnostics: X-ray of the right foot was performed and was negative for any sign of fracture or malalignment. Plan: I suspect patient has right foot sprain. Satya wrap was applied. Supportive measures were discussed with the patient and they voiced understanding discharge instructions and agrees to treatment plan. Return precautions reviewed Differential Diagnosis Differential diagnosis: Likely ankle sprain and strain, fracture of toe and other (Foot sprain, foot fracture, tendinitis) Imaging Data Radiologist's impression: ITS Impressions Foot X-Ray 05/11/24 09:16 IMPRESSION: No acute osseous abnormality of the right foot. Discharge Plan Discharge Clinical Impression: Foot sprain Qualifiers: Encounter type: initial encounter Laterality: right Qualified Code(s): S93.601A - Unspecified sprain of right foot, initial encounter Patient Disposition: Home, Self-Care Condition: Stable Instructions: Antibiotic Form, Foot Sprain (ED) Additional Instructions: Right foot x-rays negative for any sign of fracture or malalignment. Rest, ice, elevate, and wear satya wrap as directed Tylenol/motrin for pain as discussed. Gradually bear weight No running or sports until healed. Follow up with your PCP if symptoms persist more than 1 week. Patient Language: Vietnamese Prescriptions: No Action Mirena 21 mcg/24hr (up to 8 yrs) 52 mg intrauterine device 1 device intrauterine ONCE Rx Instructions: as a single dose Follow-up/Referrals: UNKNOWN,DOCTOR [Non-Staff] - Time of Disposition: 09:28 Quality NIHSS Nursing Documentation ED NIHSS nursing documentation: reviewed/agree
[2024-05-11 08:49] VITALS: BP 114/78; PULSE 93; RESP 16; TEMP 36.4; O2SAT 98
== END 2024-05-11 09:39 | disposition home or self-care (01) ==
PROVIDERS: Emergency Provider Nurse Practitioner Family
DX: S93.601A Unspecified sprain of right foot, initial encounter (principal); F17.290 Nicotine dependence, other tobacco product, uncomplicated; X50.0XXA Overexertion from strenuous movement or load, initial encounter
CPT/HCPCS: 73630; 99213; G0463

== ENCOUNTER 2024-10-23 14:30 | Emergency (ER) | payer SELFPAY ==
--- OUTSIDE RECORDS SUMMARY | 2024-10-23 14:32 | XMS_ITS | Clinical Summary ---
Author Organization [facility] Address [address] [place] [address] Care Team Providers Care Mechanist Name Role Phone No, Physician Primary Care Provider [phone] Allergies No known active allergies Medications acetaminophen [...] Date Smoking Tobacco: Never Smokeless Tobacco: Never [employer] Utilities Answer Date Recorded In the past 12 months has [employer], gas, oil, or water [employer] threatened to shut off services in your home? No 08/31/2023 Social Connection and Isolation Panel Answer Date Recorded In a typical week, how many times do you talk on the phone with family, friends, or neighbors? More than three times a week 08/31/2023 How often do you get togethe r with friends or relatives? More than three times a week 08/31/2023 How often do you attend [facility] or worship services? 1 to 4 times per year 08/31/2023 Do you belong to any clubs o r organizations such as adventism groups, unions, fraternal or athletic groups, or [...] any time in the past 12 m [facility], were you homeless or living in a retirement (including now)? No 08/31/2023 Personal Safety Answer [...] on file Legal Sex Female 5:23 PM FREIGHT CAR CLEANER Gender Identity Not on file Sexual Orientation Not on file Obstetrics History Last Filed Vital Signs Vital Sign Reading Time Taken Comments Blood Pressure 103/66 12/28/2023 11:15 PM FREIGHT CAR CLEANER Pulse 71 12/28/2023 11:25 PM FREIGHT CAR CLEANER Temperature 36.9 C (98.4 F) 12/28/2023 9:03 PM FREIGHT CAR CLEANER Respiratory Rate 20 12/28/2023 11:25 PM FREIGHT CAR CLEANER Oxygen Saturation 100% 12/28/2023 11:25 PM FREIGHT CAR CLEANER Inhaled Oxygen Concentration - - Weight 69.4 kg (153 lb) 12/28/2023 6:38 PM FREIGHT CAR CLEANER Height 154.9 cm (5' 1) 12/28/2023 6:38 PM FREIGHT CAR CLEANER Body Mass Index 28.91 12/28/2023 6:38 PM FREIGHT CAR CLEANER Plan of Treatment Health Maintenance Due Date Last Done Comments Depression Screening 2003 Hepatitis C Screening 2003 Regular Well Visit/Exam 18-64 11/07/2021 Covid-19 Vaccine (3 - 2023-2 5 season) 2023 11/11/2020, 10/16/2020 Influenza Vaccine (#1) 2024 , 04/20/2011, 02/26/2010, Additional history exists DTaP/Tdap/Td Vaccine (7 - Td or Tdap) 06/03/2025 06/04/2015, 09/16/2009, 04/17/2005, Additional history exists Hepatitis B Screening Completed 08/01/2004 , 02/18/2004, 2003 Pneumococcal vaccine <65 Completed 006, 11/21/2004, 08/01/2004, Additional history exists Varicella Vaccines Completed 09/16/2009, 11/21/2004 HPV Vaccines Completed 10/18/2018, 07/23, 06/04/2015 Meningococcal Vaccine Completed 07/15/2021, 016 Meningococcal B Vaccine Completed 08/18/2021, 07/[address] [place] [address] [address] Advance Directives For more information, please contact: [phone] * Full Code (Latest Code Status on File) Date Activated Date Inactivated Comments 08/30/2023 7:46 PM 09/02/2023 4:31 PM Care Teams Mechanist Relationship Specialty Start Date End Date No, Physician PCP - General 08/23/23
--- OUTSIDE RECORDS SUMMARY | 2024-10-23 14:32 | XMS_ITS | Clinical Summary ---
Author Organization [facility] Address [address] [place] [address] Phone Care Team Providers Care Ranch Hand Supervisor Name Role Phone Provider, None Primary Care Provider Unavailabl e Allergies No known active allergies Medications ondansetron (ZOFRAN) 4 MG Tablet Take 1 Tab by mouth every 8 hours as needed for Nausea - 1st line. 10 Tab 07/17/2018 Active traMADol (ULTRAM) 50 MG TabletIndicatio ns:Acute cystitis with hematuria Take 1 Tablet by mouth every 8 hours as needed for Moderate or more severe pain. 12 Tablet 04/26/2023 Active Social History Tobacco Use Types Packs/Day Years Used Date Smoking Tobacco: Never Smokeless Tobacco: Never Tobacco Cessation:Counseling Given: Not Answered Alcohol Use Standard Drinks/Week Comments Never 0 (1 standard drink = 0.6 oz pur e alcohol) AUDIT-C Answer Date Recorded Frequency of Alcohol Consumption Never 07/17/2018 Average Number of Drinks Not on file 019 Frequency of Binge Drinking Not on file 06/23 Comments No Sex and Gender Information Value Date Recorded Sex Assigned at Not on file Legal Sex Female 10:20 PM CDT Gender Identity Not on file Sexual Orientation Not on file Last Filed Vital Signs Vital Sign Reading Time Taken Comments Blood Pressure 121/65 04/26/2023 3:35 PM MANAGER DISASTER RECOVERY Pulse 92 04/26/2023 3:35 PM MANAGER DISASTER RECOVERY Temperature 36.2 C (97.2 F) 04/26/2023 3:35 PM MANAGER DISASTER RECOVERY Respiratory Rate 16 04/26/2023 3:35 PM MANAGER DISASTER RECOVERY Oxygen Saturation 100% 04/26/2023 3:35 PM MANAGER DISASTER RECOVERY Inhaled Oxygen Concentration - - Weight 63.5 kg (140 lb) 04/26/2023 3:35 PM MANAGER DISASTER RECOVERY Height 154.9 cm (5' 1) 04/26/2023 3:35 PM MANAGER DISASTER RECOVERY Body Mass Index 26.45 04/26/2023 3:35 PM MANAGER DISASTER RECOVERY Plan of Treatment Health Maintenance Due Date Last Done Comments Hepatitis C Virus (HCV) Screening 2003 Human Papillomavirus (HPV) Immunization (3 - 2-dose series) 12/04/2015 08/08/2015, 06/04/2015 Meningococcal B Immunization (1 of 2 - Standard) 2019 SARS-COV-2 Immunization (3 - season) 2023 11/11/2020, 10/16/2020 Influenza Immunization (#1) 10/23/202403/26, 02/26/2010, 12/25/2009 Respiratory Syncytial Virus (RSV) Immunization (Adult) (1 - 1-dose 75+ series) 11/07/2078 Hepatitis B Immunization Completed 005, 02/18/2004, 2003 Pneumococcal Immunization Combined Aged Out 04/17/2005, 11/21/2004, 08/01/2004, Additional history exists No longer eligible based on patient's age to complete this topic Hepatitis A Immunization Discontinued 06/08/2006, 04/2005 Measles Mumps Rubella (MMR) Immunization Discontinued 09/16/2009, 11/21/2004 Polio (IPV) Immunization Discontinued 010, 11/21/2004, 08/01/2004, Additional history exists Varicella Immunization Discontinued 09/16/2009, 2004 DTaP/Tdap/Td Immunization Discontinued 2015, 09/16/2009, 04/17/2005, Additional history exists Meningococcal Immunization (ACWY) Aged Out 06/04/2015 No longer eligible based on patient's age to complete this topic TdaP Immunization Completed 06/04/2015 Rotavirus Immunization Aged Out No lo nger eligible based on patient's age to complete this topic Insurance DR JOHNSON [address] [place] [address] Care Teams Ranch Hand Supervisor Relationship Specialty Start Date End Date Provider, None [place] PCP - General 11/18/22
[2024-10-23 14:45] VITALS: BP 117/54; PULSE 116; RESP 20; TEMP 38.5; O2SAT 97
[2024-10-23 14:59] LABS: EDCOVIDSCREEN Negative (Negative); EDINFLUASCREEN Negative (Negative); EDINFLUBSCREEN Negative (Negative); EDSTREPNEGPOS1 Negative (Negative)
--- NOTE | 2024-10-23 15:27 | ED.URI ---
HPI - URI/Sore Throat General Chief Complaint: Upper Respiratory Infection Stated Complaint: throat/fever/fatigue/chills Time Seen by Provider: 10/23/24 15:20 Source: patient and RN notes reviewed Mode of arrival: ambulatory Limitations: no limitations History of Present Illness HPI Narrative: 18-year-old female presents Express Care complaining of upper respiratory symptoms for 2 days. Patient reports cough, congestion, sore throat, fevers, body aches, chills. Patient denies any chest pain, difficulty breathing, nausea, vomiting, diarrhea, or other symptoms. Patient has been Tylenol, ibuprofen, DayQuil, NyQuil to help with symptoms with some relief. Related Data Home Medications ?Medication ?Instructions ?Recorded ?Confirmed ?Last Taken ?Type levonorgestrel (Mirena) 1 device intrauterine ONCE 05/01/24 Unknown History Allergies Allergy/AdvReac Type Severity Reaction Status Date / Time No Known Allergies Allergy Verified 10/23/24 14:49 Review of Systems Review of Systems: CONSTITUTIONAL: Positive for fever, chills, body aches. Negative for sweats. EYES: Denies visual changes, redness, or discharge. ENT: Positive for rhinorrhea, congestion, sore throat. Negative for otalgia. CARDIOVASCULAR: Denies chest pain, palpitations, or edema. RESPIRATORY: Positive for cough. Negative for dyspnea or wheezing. GASTROINTESTINAL: Denies abdominal pain, nausea, vomiting, or diarrhea. GENITOURINARY: Denies dysuria or hematuria. SKIN: Denies rash or itching. MUSCULOSKELETAL: Denies back pain, joint pain, or myalgia. NEUROLOGIC: Denies headache, numbness, or weakness. PSYCHIATRIC: Denies anxiety or depression. All other systems reviewed are negative, except as documented in HPI. [facility] Past Medical History Medical History IUD (intrauterine device) in place ADHD (attention deficit hyperactivity disorder) Bipolar 1 disorder Anxiety and depression Surgical History Surgical History History of tonsillectomy Social History Social History Smoking status: Current every day smoker Tobacco type: e-cigarettes/vaping Alcohol intake: unknown Substance use: unknown Gender identity (if verbalized by the patient): Female Comments At the time of my signature, I reviewed and agree with the nursing past medical, surgical, social, and family history. There is no relevant family history pertinent to the patient complaint. Exam Narrative: GENERAL: This is a well-nourished, well-developed adult, in no apparent distress. They are non ill-appearing, nontoxic appearing. HEAD: normocephalic, atraumatic. EYES: Sclera clear/white. Vision is grossly intact. Conjunctiva normal bilaterally. Extraocular movements intact. EARS: External ears normal, auditory canals clear and without drainage, TMs without erythema or perforation. Hearing grossly intact. NOSE: External nose normal with no obvious nasal discharge, nasal turbinates erythematous, no rhinorrhea. THROAT: Mucous membranes moist, posterior pharynx erythematous without exudate. Uvula is midline. Postnasal drip present. NECK: Neck supple, mild tenderness with mild cervical lymphadenopathy, no masses or thyromegaly. CARDIOVASCULAR: Regular rate and rhythm without murmurs, gallops, or rubs. RESPIRATORY: Clear to auscultation. Breath sounds equal bilaterally. No wheezes, rales, or rhonchi. SKIN: warm, Dry, intact with no suspicious lesions or rash, good texture and turgor. NEURO: awake, alert, and oriented to person, place and time. There were no obvious focal neurologic abnormalities. EXTREMITIES: No joint tenderness, effusion, or edema noted. BACK: Nontender without deformity. Course Course Emergency Course: Portions of this record may have been created with voice recognition software Level of Care: Express Care Visit Vital Signs Vital signs: Vital Signs Temperature 101.3 F H 10/23/24 14:45 Pulse Rate 116 H 10/23/24 14:45 Respiratory Rate 10/23/24 14:45 Blood Pressure 117/54 L 10/23/24 14:45 Pulse Oximetry 97 10/23/24 14:45 Oxygen Delivery Room Air 10/23/24 14:45 Temperature 101.3 F H 10/23/24 14:45 Pulse Rate 116 H 10/23/24 14:45 Respiratory Rate 10/23/24 14:45 Blood Pressure 117/54 L 10/23/24 14:45 Pulse Oximetry 97 10/23/24 14:45 Oxygen Delivery Room Air 10/23/24 14:45 MDM - URI/Sore Throat MDM Narrative Medical decision making narrative: Rapid COVID, flu, strep were negative. A throat culture is pending. Patient likely has a viral upper respiratory infection. Discussed physical exam findings. Advised supportive measures and signs/symptoms to go to the ER. Pt is appropriate for outpt treatment and f/u. Differential Diagnosis Differential diagnosis: Likely upper respiratory infection, sinusitis, viral infection and pharyngitis Lab Data Attestation: I reviewed the patient's lab results. Labs: Lab Results 10/23/24 Range/Units 14:58 POC Influenza A Ag Negative (Negative) POC Influenza B Ag Negative (Negative) POC SARS CoV-2 Ag Negative (Negative) POC Grp A Strep Screen Negative (Negative) Discharge Plan Discharge Clinical Impression: Upper respiratory infection Qualifiers: URI type: unspecified viral URI Qualified Code(s): J06.9 - Acute upper respiratory infection, unspecified Patient Disposition: Home Condition: Stable Instructions: Antibiotic Form, Upper Respiratory Infection (ED) Additional Instructions: Your rapid strep swab was negative today at [facility]. You will be notified in a few days if the culture comes back positive for strep, and appropriate antibiotics will be called in for you at that time. Your symptoms are likely due to a viral illness, which is not treated with antibiotics. Viral symptoms can be present for up to 7-10 days. Take Tylenol or ibuprofen for fever or pain. Rest and stay hydrated. Follow up with your PCP in 3-5 days if symptoms are not improving. Go to the ER immediately if you developed difficulty breathing or swallowing Patient Language: Estonian Prescriptions: No Action Mirena 21 mcg/24hr (up to 8 yrs) 52 mg intrauterine device 1 device intrauterine ONCE Rx Instructions: as a single dose Follow-up/Referrals: PHYSICIAN,WHITE SUGAR BOILER [Primary Care Provider, Internal Medicine] Stand Alone Forms: Work/School Release IP Time of Disposition: 15:29
== END 2024-10-23 15:35 | disposition home or self-care (01) ==
DX: J06.9 Acute upper respiratory infection, unspecified (principal); Z20.822 Contact with and (suspected) exposure to COVID-19; F17.290 Nicotine dependence, other tobacco product, uncomplicated
CPT/HCPCS: 87426; 87804; 87880; 99213; G0463

== ENCOUNTER 2024-12-14 17:12 | Emergency (ER) | payer SELFPAY ==
--- OUTSIDE RECORDS SUMMARY | 2024-12-14 17:13 | XMS_ITS | Clinical Summary ---
Author Organization [facility] Address [address] [place] [address] Care Team Providers Care Bush Hog Operator Name Role Phone No, Physician Primary Care Provider [phone] Allergies No known active allergies Medications acetaminophen [...] Date Smoking Tobacco: Never Smokeless Tobacco: Never [employer] Utilities Answer Date Recorded In the past 12 months has [employer], gas, oil, or water [employer] threatened to shut off services in your [...] week 08/31/2023 How often do you attend [facility] or jain services? 1 to 4 times per year 08/31/2023 Do you belong to any clubs o r organizations such as buddhism groups, unions, fraternal or athletic groups, or [...] any time in the past 12 [facility], were you homeless or living in a nursing home (including now)? No 08/31/2023 Personal Safety Answer [...] on file Legal Sex Female 5:23 PM PSYCH SPECIALIST Gender Identity Not on file Sexual Orientation Not on file Obstetrics History Last Filed Vital Signs Vital Sign Reading Time Taken Comments Blood Pressure 103/66 12/28/2023 11:15 PM PSYCH SPECIALIST Pulse 71 12/28/2023 11:25 PM PSYCH SPECIALIST Temperature 36.9 C (98.4 F) 12/28/2023 9:03 PM PSYCH SPECIALIST Respiratory Rate 20 12/28/2023 11:25 PM PSYCH SPECIALIST Oxygen Saturation 100% 12/28/2023 11:25 PM PSYCH SPECIALIST Inhaled Oxygen Concentration - - Weight 69.4 kg (153 lb) 12/28/2023 6:38 PM PSYCH SPECIALIST Height 154.9 cm (5' 1) 12/28/2023 6:38 PM PSYCH SPECIALIST Body Mass Index 28.91 12/28/2023 6:38 PM PSYCH SPECIALIST Plan of Treatment Health Maintenance Due Date Last Done Comments Cervical Cancer Screening 2003 Depression Screening 2003 Hepatitis C Screening 2003 Regular Well Visit/Exam 18-64 11/07/2021 Covid-19 Vaccine (3 2024-03 6 season) 2024 11/11/2020, 10/16/2020 Influenza Vaccine (#1) 2024 , [...] Meningococcal B Vaccine Completed 08/18/2021, 07/[address] [place] [address] [address] Advance Directives For more information, please contact: [phone] * Full Code (Latest Code Status on File) Date Activated Date Inactivated Comments 08/30/2023 7:46 PM 09/02/2023 4:31 PM Care Teams Bush Hog Operator Relationship Specialty Start Date End Date No, Physician PCP - General 08/23/23
[2024-12-14 17:17] VITALS: BP 147/95; PULSE 102; RESP 20; TEMP 37; O2SAT 100
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
== END 2024-12-14 18:05 | disposition home or self-care (01) ==
PROVIDERS: Emergency Provider Nurse Practitioner
DX: S06.0X0A Concussion without loss of consciousness, initial encounter (principal); Y04.2XXA Assault by strike against or bumped into by another person, initial encounter; Z97.5 Presence of (intrauterine) contraceptive device; F17.290 Nicotine dependence, other tobacco product, uncomplicated
CPT/HCPCS: 99213; G0463

== ENCOUNTER 2025-02-08 12:10 | Emergency (ER) | payer SELFPAY ==
[2025-02-08 12:20] VITALS: BP 142/72; PULSE 90; RESP 20; TEMP 36.6; O2SAT 98
[2025-02-08 12:48] LABS: EDCOVIDSCREEN Positive (Negative); EDINFLUASCREEN Negative (Negative); EDINFLUBSCREEN Negative (Negative)
--- NOTE | 2025-02-08 12:59 | ED.URI ---
HPI - URI/Sore Throat General Chief Complaint: Upper Respiratory Infection Stated Complaint: headache, fever, body ache, chills, Time Seen by Provider: 02/08/25 12:45 Source: patient and RN notes reviewed Mode of arrival: ambulatory Limitations: no limitations History of Present Illness HPI Narrative: 19-year-old female presents Express Care complaining of headache, fevers, body aches, chills, chest congestion, cough for 2 days. Patient denies any other upper respiratory symptoms, difficulty breathing, nausea vomiting, diarrhea, any other symptoms. Patient taking [id number] cold and flu medication without relief. Related Data Home Medications ?Medication ?Instructions ?Recorded ?Confirmed ?Last Taken ?Type levonorgestrel (Mirena) 1 device intrauterine ONCE 05/01/24 Unknown History Allergies Allergy/AdvReac Type Severity Reaction Status Date / Time No Known Allergies Allergy Verified 02/08/25 12:21 Review of Systems Review of Systems: CONSTITUTIONAL: Positive for fevers, body aches,, chills. Negative for sweats. EYES: Denies visual changes, redness, or discharge. ENT: Positive for congestion,. Negative for rhinorrhea, sore throat, or otalgia. CARDIOVASCULAR: Denies chest pain, palpitations, or edema. RESPIRATORY: Positive for cough and chest congestion. Negative for wheezing or dyspnea. GASTROINTESTINAL: Denies abdominal pain, nausea, vomiting, or diarrhea. GENITOURINARY: Denies dysuria or hematuria. SKIN: Denies rash or itching. MUSCULOSKELETAL: Denies back pain, joint pain, or myalgia. NEUROLOGIC: Denies headache, numbness, or weakness. PSYCHIATRIC: Denies anxiety or depression. All other systems reviewed are negative, except as documented in HPI. [facility] Past Medical History Medical History IUD (intrauterine device) in place ADHD (attention deficit hyperactivity disorder) Bipolar 1 disorder Anxiety and depression Surgical History Surgical History History of tonsillectomy Social History Social History Smoking status: Current every day smoker Tobacco type: e-cigarettes/vaping Alcohol intake: unknown Substance use: unknown Gender identity (if verbalized by the patient): Female Comments At the time of my signature, I reviewed and agree with the nursing past medical, surgical, social, and family history. There is no relevant family history pertinent to the patient complaint. Exam Narrative: GENERAL: This is a well-nourished, well-developed adult, in no apparent distress. They are non ill-appearing, nontoxic appearing. HEAD: normocephalic, atraumatic. EYES: Sclera clear/white. Conjunctiva normal. Vision is grossly intact. Extraocular movements intact EARS: External ears normal, auditory canals clear and without drainage, TMs normal without perforation. Hearing grossly intact. NOSE: External nose normal with no obvious nasal discharge, nasal turbinates erythematous, no rhinorrhea. THROAT: Mucous membranes moist, posterior pharynx erythematous with PND. Uvula midline. NECK: Neck supple, non-tender without lymphadenopathy, masses or thyromegaly. CARDIOVASCULAR: Regular rate and rhythm without murmurs, gallops, or rubs. RESPIRATORY: Clear to auscultation. Breath sounds equal bilaterally. No wheezes, rales, or rhonchi. Respiratory rate normal, respiratory effort nonlabored, no respiratory distress SKIN: warm, Dry, intact with no suspicious lesions or rash, good texture and turgor. NEURO: awake, alert, and oriented to person, place and time. There were no obvious focal neurologic abnormalities. EXTREMITIES: No joint tenderness, effusion, or edema noted. BACK: Nontender without deformity. No CVA tenderness. Course Course Level of Care: Express Care Visit Vital Signs Vital signs: Vital Signs Temperature 97.8 F 02/08/25 12:20 Pulse Rate 90 02/08/25 12:20 Respiratory Rate 20 02/08/25 12:20 Blood Pressure 142/72 H 02/08/25 12:20 Pulse Oximetry 98 02/08/25 12:20 Oxygen Delivery Room Air 02/08/25 12:20 Temperature 97.8 F 02/08/25 12:20 Pulse Rate 90 02/08/25 12:20 Respiratory Rate 20 02/08/25 12:20 Blood Pressure 142/72 H 02/08/25 12:20 Pulse Oximetry 98 02/08/25 12:20 Oxygen Delivery Room Air 02/08/25 12:20 [facility] Narrative Medical decision making narrative: Rapid COVID positive. Negative flu. Will send patient home with benzonatate albuterol inhaler. Patient nontoxic appearing, no apparent distress vital signs hemodynamically stable. Lung sounds clear to auscultation. Discussed physical exam findings. Advised supportive measures and signs/symptoms to go to the ER. Pt is appropriate for outpt treatment and f/u. Differential Diagnosis Differential Diagnosis: Differential diagnostic considerations for upper respiratory infection include upper respiratory infection, croup, otitis media, sinusitis, viral infection, bronchitis, influenza, COVID, pharyngitis, strep, uvulitis. Lab Data [facility] Lab Attestation statement: I personally reviewed the patient's lab results. Labs: Lab Results 02/08/25 Range/Units 12:46 POC Influenza A Ag Negative (Negative) POC Influenza B Ag Negative (Negative) POC SARS CoV-2 Ag Positive (Negative) Critical Care Time Critical Care Time Critical Care Time: No Discharge Plan Discharge Clinical Impression: COVID Patient Disposition: Home Condition: Stable Instructions: COVID-19 (Coronavirus Disease 2019) (ED) Additional Instructions: You should avoid crowds until you are fever free for 24 hours without the use of fever reducing medications, or the symptoms are improved Rest. Drink plenty of fluids. You may take ibuprofen 600 mg to 800 mg every 6-8 hours. Do not exceed more than 800 mg of ibuprofen per dose. Do not exceed more than 3200 mg ibuprofen in a day. You may take up to 1000 mg Tylenol every 6-8 hours. Do not exceed 1000 mg per dose, do exceed more than 4000 mg of Tylenol in a day. Recommend Flonase spray and Zyrtec (or Claritin/Sadie) for sinus pressure/congestion Use albuterol as needed for shortness of breath or wheezing. Use benzonatate tablets as needed for cough. Follow up with your primary care provider 3-5 days. Go to the ER for worsening symptoms, chest pain, difficulty breathing, rapid breathing, audible wheezing, unable to talk in full sentences, fevers, or serious concerns Patient Language: Bruneian Prescriptions: New benzonatate 200 mg capsule 200 mg PO BID PRN (Reason: cough) Qty: 20 0RF albuterol sulfate [Ventolin HFA] 90 mcg/actuation HFA aerosol inhaler 2 puff inhalation QID PRN (Reason: shortness of breath or wheezing) Qty: 8.5 0RF No Action Mirena 21 mcg/24hr (up to 8 yrs) 52 mg intrauterine device 1 device intrauterine ONCE Rx Instructions: as a single dose Follow-up/Referrals: PHYSICIAN,PROCESSING OPERATOR [Primary Care Provider, Internal Medicine] Stand Alone Forms: Work/School Release IP Time of Disposition: 12:55
--- OUTSIDE RECORDS SUMMARY | 2025-02-08 13:11 | XMS_ITS | Clinical Summary ---
Author Organization [facility] Address [address] [place] [address] Phone Care Team Providers Care Machine Shop Supervisor Name Role Phone Provider, None Primary [...] Comments Blood Pressure 121/65 04/26/2023 3:35 PM LAUNDRY ROOM ATTENDANT Pulse 92 04/26/2023 3:35 PM LAUNDRY ROOM ATTENDANT Temperature 36.2 C (97.2 F) 04/26/2023 3:35 PM LAUNDRY ROOM ATTENDANT Respiratory Rate 16 04/26/2023 3:35 PM LAUNDRY ROOM ATTENDANT Oxygen Saturation 100% 04/26/2023 3:35 PM LAUNDRY ROOM ATTENDANT Inhaled Oxygen Concentration - - Weight 63.5 kg (140 lb) 04/26/2023 3:35 PM LAUNDRY ROOM ATTENDANT Height 154.9 cm (5' 1) 04/26/2023 3:35 PM LAUNDRY ROOM ATTENDANT Body Mass Index 26.45 04/26/2023 3:35 PM LAUNDRY ROOM ATTENDANT Plan of Treatment Health Maintenance Due Date Last Done Comments Hepatitis C Virus (HCV) Screening 2003 Human Papillomavirus (HPV) Immunization (3 - 2-dose series) 12/04/2015 08/08/2015, 06/04/2015 Meningococcal B Immunization (1 of 2 - Standard) 2019 Influenza Immunization (#1) 10/23/202403/26, 02/26/2010, 12/25/2009 SARS-COV-2 Immunization (3 - 2024- season) 2024 11/11/2020, 10/16/2020 Pap Smear 11/07/2024 Respiratory Syncytial Virus (RSV) Immunization (Adult) (1 [...] 11/21/2004, 08/01/2004, Additional history exists Varicella Immunization Completed 09/16/2009, 2004 DTaP/Tdap/Td Immunization Discontinued 2015, 09/16/2009, 04/17/2005, Additional history exists Meningococcal Immunization (ACWY) Aged Out 06/04/2015 No longer eligible based on patient's age to complete this topic TdaP Immunization Completed 06/04/2015 Rotavirus Immunization Aged Out No lo nger eligible based on patient's age to complete this topic Insurance DR JOHNSON [address] Care Teams Machine Shop Supervisor Relationship Specialty Start Date End Date Provider, None [place] PCP - General 11/18/22
--- OUTSIDE RECORDS SUMMARY | 2025-02-08 13:12 | XMS_ITS | Clinical Summary ---
Author Organization [facility] Address [address] [place] [address] Care Team Providers Care Grant Specialist Name Role Phone No, Physician Primary Care Provider [phone] Allergies No known active allergies Medications acetaminophen [...] Date Smoking Tobacco: Never Smokeless Tobacco: Never GIVTED Utilities Answer Date Recorded In the past 12 months has [employer], gas, oil, or water [employer] threatened to shut off services in your [...] do you attend [facility] or mormon services? 1 to 4 times per year 08/31/2023 Do you belong to any clubs o r organizations such as yarsani groups, unions, fraternal or athletic groups, or [...] any time in the past 12 m [facility], were you homeless or living in a long-term (including now)? No 08/31/2023 Personal Safety Answer [...] on file Legal Sex Female 5:23 PM LAND MEASURER Gender Identity Not on file Sexual Orientation Not on file Last Filed Vital Signs Vital Sign Reading Time Taken Comments Blood Pressure 103/66 12/28/2023 11:15 PM LAND MEASURER Pulse 71 12/28/2023 11:25 PM LAND MEASURER Temperature 36.9 C (98.4 F) 12/28/2023 9:03 PM LAND MEASURER Respiratory Rate 20 12/28/2023 11:25 PM LAND MEASURER Oxygen Saturation 100% 12/28/2023 11:25 PM LAND MEASURER Inhaled Oxygen Concentration - - Weight 69.4 kg (153 lb) 12/28/2023 6:38 PM LAND MEASURER Height 154.9 cm (5' 1) 12/28/2023 6:38 PM LAND MEASURER Body Mass Index 28.91 12/28/2023 6:38 PM LAND MEASURER Plan of Treatment Health Maintenance Due Date [...] Meningococcal B Vaccine Completed 08/18/2021, 07/[address] [place] [place] [address] Advance Directives For more information, please contact: [phone] * Full Code (Latest Code Status on File) Date Activated Date Inactivated Comments 08/30/2023 7:46 PM 09/02/2023 4:31 PM Care Teams Grant Specialist Relationship Specialty Start Date End Date No, Physician PCP - General 08/23/23
== END 2025-02-08 13:02 | disposition home or self-care (01) ==
DX: U07.1 COVID-19 (principal); F17.290 Nicotine dependence, other tobacco product, uncomplicated
CPT/HCPCS: 87426; 87804; 99213; G0463